=== PATIENT | female | born 1965 | race Caucasian/White ===

== ENCOUNTER 2019-04-17 04:04 | Inpatient (IN) | payer OTHER ==
[2019-04-17] MEDS ORDERED: ONDANSETRON 4 MG INJ IV (04:30)
[2019-04-17] MEDS ORDERED: DOCUSATE SODIUM 100 MG CAP PO ×2 (04:30→07:30)
[2019-04-17] MEDS ORDERED: NACL 0.9% 3 ML SYG IV (04:30)
[2019-04-17] MEDS ORDERED: LEVALBUTEROL (NEB) 1.25 MG/0.5 ML AMP HHN (04:30)
[2019-04-17] MEDS: ALBUTEROL/IPRATROPIUM (NEB) 3 ML AMP HHN ×5 (05:20→21:08)
[2019-04-17] MEDS ORDERED: LORAZEPAM 2 MG INJ IV (05:30)
[2019-04-17] MEDS: PANTOPRAZOLE (EC) 40 MG TAB PO (05:32)
[2019-04-17] MEDS: morphine 2 MG INJ IV (05:32)
[2019-04-17] MEDS: METHYLPREDNISOLONE 40 MG INJ IV ×3 (05:32→21:25)
[2019-04-17] MEDS: HEPARIN 5,000 UNIT/1 ML VIAL SC ×3 (05:36→21:27)
[2019-04-17 05:41] LABS: ADD MAN DIFF? NO; BASOPHILS % 0.2 % (0.0-2.0); HEMATOCRIT 39.2 % (37.0-47.0); HEMOGLOBIN 12.2 g/dl (12.0-16.0); LYMPHOCYTES # 0.7 10^3/ul (0.8-2.9); LYMPHOCYTES % 6.8 % (15.0-51.0); MEAN CORPUSCULAR HEMOGLOBIN 24.5 pg (29.0-33.0); MEAN CORPUSCULAR HGB CONC 31.1 g/dl (32.0-37.0); MEAN CORPUSCULAR VOLUME 78.9 fl (82.0-101.0); MEAN PLATELET VOLUME 12.3 fl (7.4-10.4); MONOCYTE # 0.1 10^3/ul (0.3-0.9); MONOCYTES % 1.1 % (0.0-11.0); NEUTROPHIL # 9.2 10^3/ul (1.6-7.5); NEUTROPHILS % 91.5 % (39.0-77.0); PLATELET COUNT 449 10^3/UL (140-415); RED BLOOD COUNT 4.97 10^6/ul (4.20-5.40); RED CELL DISTRIBUTION WIDTH 17.2 % (11.5-14.5)
[2019-04-17 05:41] LABS: WHITE BLOOD COUNT 10.1 10^3/ul (4.8-10.8)
[2019-04-17 05:51] LABS: HEMOGLOBIN A1C 5.3 % (0-5.9)
[2019-04-17 06:08] LABS: ALANINE AMINOTRANSFERASE 16 IU/L (13-69); ALBUMIN 3.7 g/dl (3.3-4.9); ALBUMIN/GLOBULIN RATIO 1.15; ALKALINE PHOSPHATASE 64 IU/L (42-121); ANION GAP 8 (5-13); ASPARTATE AMINO TRANSFERASE 21 IU/L (15-46); BILIRUBIN,INDIRECT 0.3 mg/dl (0-1.1); BILIRUBIN,TOTAL 0.3 mg/dl (0.2-1.3); BLOOD UREA NITROGEN 13 mg/dl (7-20); CALCIUM 9.7 mg/dl (8.4-10.2); CARBON DIOXIDE 24 mmol/L (21-31); CHLORIDE 105 mmol/L (97-110); CREATININE 0.63 mg/dl (0.44-1.00); Estimated GFR > 60 mL/min (>60); GLUCOSE 129 mg/dl (70-220); MAGNESIUM 2.2 mg/dl (1.7-2.5); POTASSIUM 4.3 mmol/L (3.5-5.1); SODIUM 137 mmol/L (135-144); TOTAL PROTEIN 6.9 g/dl (6.1-8.1)
[2019-04-17 06:37] LABS: THYROID STIMULATING HORMONE 0.801 MIU/L (0.465-4.680)
[2019-04-17] MEDS: CALCIUM CARBONATE 750 MG CHEW TAB PO ×2 (07:30→10:30)
[2019-04-17 08:53] LABS: TROPONIN-I < 0.012 ng/ml (0.000-0.120)
[2019-04-17] MEDS: LAMOTRIGINE 100 MG TAB PO (08:53)
[2019-04-17] MEDS: LEVOFLOXACIN 750 MG TABLET PO (08:54)
[2019-04-17] MEDS: BUSPIRONE 10 MG TAB PO (08:54)
[2019-04-17] MEDS: VENLAFAXINE (XR) 75 MG CAP PO (08:54)
[2019-04-17] MEDS: GABAPENTIN 300 MG CAP PO ×2 (08:54→21:23)
[2019-04-17] MEDS: FERROUS SULFATE (EC) 325 MG TAB PO ×2 (08:57→21:24)
[2019-04-17] MEDS: NICOTINE (7 MG/24 HR) PATCH TRANSDERM (08:59)
[2019-04-17] MEDS ORDERED: PANTOPRAZOLE (EC) 40 MG TAB PO (09:00)
[2019-04-17] MEDS ORDERED: NON-FORMULARY/PATIENT OWN MED (Lurasidone Hcl (Latuda) 40 MG) PO (09:00)
[2019-04-17] MEDS: LITHIUM CARBONATE 300 MG CAP PO ×2 (09:00→21:24)
[2019-04-17] MEDS: ACETAMINOPHEN 325 MG TAB PO (17:21)
[2019-04-17] MEDS: RISPERIDONE 0.25 MG TAB PO (21:24)
[2019-04-17] MEDS: traZODone 50 MG TAB PO (21:24)
[2019-04-18] MEDS: ALBUTEROL/IPRATROPIUM (NEB) 3 ML AMP HHN ×3 (00:12→11:55)
[2019-04-18 05:35] LABS: ADD MAN DIFF? NO
[2019-04-18 05:40] LABS: WHITE BLOOD COUNT 14.8 10^3/ul (4.8-10.8)
[2019-04-18 05:40] LABS: BASOPHILS % 0.1 % (0.0-2.0); HEMATOCRIT 37.4 % (37.0-47.0); HEMOGLOBIN 11.6 g/dl (12.0-16.0); LYMPHOCYTES # 0.7 10^3/ul (0.8-2.9); LYMPHOCYTES % 4.7 % (15.0-51.0); MEAN CORPUSCULAR HEMOGLOBIN 24.6 pg (29.0-33.0); MEAN CORPUSCULAR VOLUME 79.4 fl (82.0-101.0); MEAN PLATELET VOLUME 12.3 fl (7.4-10.4); MONOCYTE # 0.2 10^3/ul (0.3-0.9); MONOCYTES % 1.6 % (0.0-11.0); NEUTROPHIL # 13.8 10^3/ul (1.6-7.5); NEUTROPHILS % 93.1 % (39.0-77.0); PLATELET COUNT 429 10^3/UL (140-415); RED BLOOD COUNT 4.71 10^6/ul (4.20-5.40); RED CELL DISTRIBUTION WIDTH 17.3 % (11.5-14.5)
[2019-04-18 05:57] LABS: ALANINE AMINOTRANSFERASE 19 IU/L (13-69); ALBUMIN 3.4 g/dl (3.3-4.9); ALBUMIN/GLOBULIN RATIO 1.17; ALKALINE PHOSPHATASE 56 IU/L (42-121); ANION GAP 7 (5-13); ASPARTATE AMINO TRANSFERASE 16 IU/L (15-46); BILIRUBIN,INDIRECT 0.2 mg/dl (0-1.1); BILIRUBIN,TOTAL 0.2 mg/dl (0.2-1.3); BLOOD UREA NITROGEN 16 mg/dl (7-20); CALCIUM 9.7 mg/dl (8.4-10.2); CARBON DIOXIDE 26 mmol/L (21-31); CHLORIDE 106 mmol/L (97-110); CHOL/HDL RATIO 2.6 RATIO; CHOLESTEROL 157 mg/dl (100-200); CREATININE 0.68 mg/dl (0.44-1.00); Estimated GFR > 60 mL/min (>60); GLUCOSE 114 mg/dl (70-220); HDL CHOLESTEROL 59 mg/dl (37-92); LDL CHOLESTEROL,CALCULATED 72 mg/dl; MAGNESIUM 1.9 mg/dl (1.7-2.5); POTASSIUM 4.6 mmol/L (3.5-5.1); SODIUM 139 mmol/L (135-144); TOTAL PROTEIN 6.3 g/dl (6.1-8.1); TRIGLYCERIDES 130 mg/dl (0-149)
[2019-04-18] MEDS: LEVOFLOXACIN 750 MG TABLET PO (06:16)
[2019-04-18] MEDS: PANTOPRAZOLE (EC) 40 MG TAB PO (06:16)
[2019-04-18] MEDS: METHYLPREDNISOLONE 40 MG INJ IV (06:17)
[2019-04-18] MEDS: HEPARIN 5,000 UNIT/1 ML VIAL SC (06:17)
[2019-04-18] MEDS: VENLAFAXINE (XR) 75 MG CAP PO (08:42)
[2019-04-18] MEDS: FERROUS SULFATE (EC) 325 MG TAB PO (08:42)
[2019-04-18] MEDS: GABAPENTIN 300 MG CAP PO (08:42)
[2019-04-18] MEDS: LAMOTRIGINE 100 MG TAB PO (08:42)
[2019-04-18] MEDS: LITHIUM CARBONATE 300 MG CAP PO (08:42)
[2019-04-18] MEDS: BUSPIRONE 10 MG TAB PO (08:42)
[2019-04-18] MEDS: CALCIUM CARBONATE 500 MG CHEW TAB PO (08:43)
[2019-04-18] MEDS: NICOTINE (7 MG/24 HR) PATCH TRANSDERM (08:44)
[2019-04-18] MEDS: FLUTICASONE/VILANTEROL 200-25 INH DEVICE INH (08:44)
[2019-04-18] MEDS: [UNRECOGNIZED DRUG - REMARK] XX (09:00)
[2019-04-18] MEDS: BISACODYL (EC) 5 MG TAB PO (10:18)
== END 2019-04-18 12:25 | disposition home or self-care (01) | DRG 191 ==
LOC: MS3 04:04
DX: J44.1 Chronic obstructive pulmonary disease with (acute) exacerbation (principal); C95.91 Leukemia, unspecified, in remission; D50.9 Iron deficiency anemia, unspecified; F31.9 Bipolar disorder, unspecified; F41.9 Anxiety disorder, unspecified; F17.210 Nicotine dependence, cigarettes, uncomplicated
CPT/HCPCS: 80053; 80061; 82306; 83036; 83735; 84443; 84484; 85025; 94640